=== PATIENT | female | born 1990 | race Caucasian/White ===

== ENCOUNTER 2017-11-18 03:26 | Observation (INO) | payer MEDICAID, SELFPAY ==
[2017-11-17 19:00] VITALS: BMI 29.0
[2017-11-17 19:47] LABS: Absolute Lymphocyte Count 3.61 X10^3/ul (0.83-4.51); Absolute Neutrophil Count 8.8 X10^3/uL (2.0-7.7); Basophil# 0.02 X10^3/uL; Basophil% 0.1 % (0-1); Eosinophil# 0.06 X10^3/uL; Eosinophils% 0.4 % (0-5); Hematocrit 31.3 % (37-47); Hemoglobin 10.6 g/dl (12.0-15.0); Lymphocyte # 3.61 X10^3/ul (4.0); Lymphocyte % 26.5 % (19-41); Mean Corp Hgb Conc 33.9 g/gl (32-36); Mean Corpuscular Volume 91.5 fL (81-99); Mean Platelet Vol. 11.5 fl (6.2-12.0); Monocyte# 1.08 X10^3/uL; Monocyte% 7.9 % (0-10); Neutrophil # 8.79 X10^3/uL (2.7-7.7); Neutrophil % 64.7 % (47-70); Platelet Count 286 K/mm3 (150-450); RBC Distribution Width CV 13.8 % (11.6-14.6); RBC Distribution Width SD 44.9 fl (35.1-43.9); Red Blood Count 3.42 M/mm3 (4.2-5.4); White Blood Count 13.6 K/mm3 (4.4-11.0)
[2017-11-17 19:49] LABS: POSITIVE COUNT NO; POSITIVE DIFFERENTIAL NO; POSITIVE MORPHOLOGY NO
[2017-11-17 19:52] LABS: Prothrombin Time (Protime)PT. 13.5 SECONDS (11.7-14.9)
[2017-11-17 19:53] LABS: Partial Thromboplast Time 27.4 Seconds (24.1-36.2)
[2017-11-17 20:02] LABS: AST(SGOT) 18 U/L (15-37); Alanine Aminotransfer ALT/SGPT 14 U/L (13-56); Creatinine, Serum 0.67 mg/dL (0.55-1.02); EST Glomerular Filtration Rate 114 mL/min (>60); Est Glom Filt Rate - Afr Amer 138 mL/min (>60); Uric Acid 4.3 mg/dL (2.6-6.0)
[2017-11-17 20:11] LABS: Protein, Urine (Random) 43.5 mg/dL (<11.9); Protein:Creat Ratio 144 mg/g CRE (0-200)
[2017-11-17] MEDS: Betamethasone/Betamethasone 30 MG/5 ML Vial 12 MG IM (20:17)
[2017-11-17] MEDS: Lactated Ringers 1,000 ML 125 ML IV (20:25)
[2017-11-17 20:41] LABS: Group B Strep DNA By PCR POSITIVE (Negative); Probe Check PASS
--- NOTE | 2017-11-17 21:17 | OB.TRI.NOTE ---
- Problem List (1) uterine contractions in third trimester, antepartum Status: Acute History of Present Illness Date of Service: 11/17/17 Was patient seen by the physician?: Yes Reason For Visit: ABDOMINAL PAIN Date of Service: 11/17/17 Final XAVIER: 12/20/17 Final XAVIER Source: US <20 weeks Gestational age: 35 Weeks and 2 Days History of Present Illness: Remberto is a 26 y/o @ 35.2 weeks reporting ctx starting at 3:30pm this afternoon that initially were 2-3 minutes apart and that patient rated a 4/10. Patient noted +FM and no vaginal discharge or bleeding. Patient at time ctx started was in the [facility], patient was evaluated for labor and r/o SROM. Negative work-up done in office. Patient then started to have more frequent ctx q 1-2 minutes apart that was more painful so patient made decision to come to hospital. Allergies metals Adverse Reaction (Uncoded 08/29/16 16:04) Rash - Pertinent Past Medical History Medical History: Past Medical History (Last Reviewed 11/08/17 @ 09:16 by Aleyda Ridley) Environmental allergies History of gallstones Surgical History: Past Surgical History (Last Reviewed 11/08/17 @ 09:16 by Aleyda Ridley) H/O shoulder surgery History of History of cholecystectomy Pertinent Past Medical History: See [facility] Record Physical Exam Vitals: See Nursing Note for Vital Signs - initial BP = 140s/90s, subsequent blood pressures 110s/70s-80s. Maternal HR 107-118. Patient Afebrile Initial FHT baseline was 170 to 180 with moderate variability, + accels, no decels noted General: Alert, Oriented x3, No apparent distress HEENT: Atraumatic, Normocephalic. 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 Negative for: Vulvar lesions Estimated gestational size: Appropriate for gestational size Presentation: Cephalic Cervix Dilation (cm): 1 - On admission by engineer technical staff Station: -2 Effacement (%): 50 NST - FHR Rate Baby A Baseline: 160 Variability:: Moderate Accelerations:: 15 x 15 Decelerations:: None NST Reactive:: Yes, Appropriate for gestational age FHR Category:: Category I Uterine Activity:: Ctx q 1-2 minutes, palpate mildly strong Impression/Plan A: 26 y/o @ 35.2 wks, Contractions, Previous Section, Category II ---> Category I FHT P: 1) Dr. Tapia consult re: this patient, Dr. Tapia to come and assess patient due to pre-term status 2) Start IV, given 1000mL LR fluid bolus 3) fFN done, GBS swab done, 1st dose Celestone given 4) Will admit 26 OBS status to evaluate for possible PTL Marlin BROWN
--- NOTE | 2017-11-17 21:27 | OB.TRI.HP_ITS ---
- Problem List (1) uterine contractions in third trimester, antepartum Status: Acute History of Present Illness Date of Service: 11/17/17 Was patient seen by the physician?: Yes Reason For Visit: ABDOMINAL PAIN Date of Service: 11/17/17 Final XAVIER: 12/20/17 Final XAVIER Source: US <20 weeks Gestational age: 35 Weeks and 2 Days History of Present Illness: Remberto is a 26 y/o @ 35.2 weeks reporting ctx starting at 3:30pm this afternoon that initially were 2-3 minutes apart and that patient rated a 4/10. Patient noted +FM and no vaginal discharge or bleeding. Patient at time ctx started was in the [facility], patient was evaluated for labor and r/o SROM. Negative work-up done in office. Patient then started to have more frequent ctx q 1-2 minutes apart that was more painful so patient made decision to come to hospital. Allergies metals Adverse Reaction (Uncoded 08/29/16 16:04) Rash - Pertinent Past Medical History Medical History: Past Medical History (Last Reviewed 11/08/17 @ 09:16 by Aleyda Ridley) Environmental allergies History of gallstones Surgical History: Past Surgical History (Last Reviewed 11/08/17 @ 09:16 by Aleyda Ridley) H/O shoulder surgery History of History of cholecystectomy Pertinent Past Medical History: See [facility] Record Physical Exam Vitals: See Nursing Note for Vital Signs - initial BP = 140s/90s, subsequent blood pressures 110s/70s-80s. Maternal HR 107-118. Patient Afebrile Initial FHT baseline was 170 to 180 with moderate variability, + accels, no decels noted General: Alert, Oriented x3, No apparent distress HEENT: Atraumatic, Normocephalic. 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 Negative for: Vulvar lesions Estimated gestational size: Appropriate for gestational size Presentation: Cephalic Cervix Dilation (cm): 1 - On admission by staffing and scheduling coordinator Station: -2 Effacement (%): 50 NST - FHR Rate Baby A Baseline: 160 Variability:: Moderate Accelerations:: 15 x 15 Decelerations:: None NST Reactive:: Yes, Appropriate for gestational age FHR Category:: Category I Uterine Activity:: Ctx q 1-2 minutes, palpate mildly strong Impression/Plan A: 26 y/o @ 35.2 wks, Contractions, Previous Section, Category II ---> Category I FHT P: 1) Dr. Tapia consult re: this patient, Dr. Tapia to come and assess patient due to pre-term status 2) Start IV, given 1000mL LR fluid bolus 3) fFN done, GBS swab done, 1st dose Celestone given 4) Will admit 26 OBS status to evaluate for possible PTL Marlin BROWN
--- NOTE | 2017-11-17 21:36 | PN_ITS ---
Progress Note Addendum: Patient reports that ctx strength and pain has decreased from a 7-8/ 10 to a 5 or 6/10. Patient continues to contract q 1-2 minutes. SVE done, cervical change noted. SVE = /-[address] Willie LOGAN updated on patient's status. Will continue to expectantly manage at this time. Marlin BROWN
--- NOTE | 2017-11-17 21:48 | NURSING ---
2148-will give pt admission packet once admitted.
[2017-11-17 21:58] LABS: Fibrinogen 420 mg/dl (203-444)
--- NOTE | 2017-11-18 02:44 | PCM.PN.OB ---
Patient Problems: Active and Suspected Problems (Last Reviewed 11/08/17 @ 09:16 by Aleyda Ridley) uterine contractions in third trimester, antepartum (Acute) Subjective: Patient sitting up in bed reporting that her contractions are continuing at this time. Still feeling very painful and uncomfortable to the patient. Patient rating contractions anywhere from 5-9/10. Patient breathing easily and usually able to talk through ctx. Patient reports sharp, stabbing pain in vagina during ctx and now +bloody mucus show. Objective: FHT baseline 120 with moderate to marked variability, + accels, no decels Ctx q 2 minutes, moderately strong to palpation SVE = 2/50/-2 by RN, unchanged from last exam - Physical Exam General: Alert, Oriented x3, Cooperative HEENT: Atraumatic, Normocephalic Neck: Supple Lungs: Normal air movement Cardiovascular: Regular rate, No murmurs Abdomen: Soft, Non Tender - Non-rigid, abdomen relaxes in between contractions Extremities: No edema, Capillary Refill Less than 3 Seconds Skin: No rashes, No breakdown Musculoskeletal: No Tenderness to Palpation of Joints or Extremities Neurological: Cranial nerves II-XII grossly intact, Deep Tendon Reflexes 2+/4 and Symmetrical Psych/Mental Status: Normal Affect, Appropriate Weight: 158 lb 11.725 oz Body Mass Index (BMI) 29.0 Intake and Output for Last 24 Hours 11/16/17 11/17/17 11/18/17 23:59 23:59 23:59 Intake Total 900 / 900 Output Total 100 / 100 Balance 800 / 800 Laboratory Tests Past 24 Hrs 11/17/17 11/17/17 11/17/17 19:25 19:25 19:25 WBC 13.6 H RBC 3.42 L Hgb 10.6 L Hct 31.3 L MCV 91.5 MCH 31.0 MCHC 33.9 RDW 13.8 RDW Differential 44.9 H Plt Count 286 MPV 11.5 Immature Gran % (Auto) 0.400 Neut % (Auto) 64.7 Lymph % (Auto) 26.5 [place] % (Auto) 7.9 Eos % (Auto) 0.4 Baso % (Auto) 0.1 Absolute Neuts (auto) 8.8 H Absolute Lymphs (auto) 3.61 Total Counted Not Reportable Kleihauer-Betke F Hgb PT 13.5 INR 1.0 APTT 27.4 Fibrinogen Creatinine Estim Creat Clear Calc Est GFR (MDRD) Af Amer Est GFR (MDRD) Non-Af Uric Acid AST ALT U Random Total Protein Urine Creatinine Protein/Creatinin Ratio Vag Amniotic Fld Detect Group B Strep DNA Specimen Comment Blood Type A POSITIVE Antibody Screen NEGATIVE 11/17/17 11/17/17 11/17/17 19:25 19:25 19:25 WBC RBC Hgb Hct MCV MCH MCHC RDW RDW Differential Plt Count MPV Immature Gran % (Auto) Neut % (Auto) Lymph % (Auto) [place] % (Auto) Eos % (Auto) Baso % (Auto) Absolute Neuts (auto) Absolute Lymphs (auto) Total Counted Kleihauer-Betke F Hgb Pending PT INR APTT Fibrinogen 420 Creatinine 0.67 Estim Creat Clear Calc 102.40 Est GFR (MDRD) Af Amer 138 Est GFR (MDRD) Non-Af 114 Uric Acid 4.3 AST 18 ALT 14 U Random Total Protein Urine Creatinine Protein/Creatinin Ratio Vag Amniotic Fld Detect Group B Strep DNA Specimen Comment Blood Type Antibody Screen 11/17/17 11/17/17 11/18/17 19:30 19:40 02:30 WBC RBC Hgb Hct MCV MCH MCHC RDW RDW Differential Plt Count MPV Immature Gran % (Auto) Neut % (Auto) Lymph % (Auto) [place] % (Auto) Eos % (Auto) Baso % (Auto) Absolute Neuts (auto) Absolute Lymphs (auto) Total Counted Kleihauer-Betke F Hgb PT INR APTT Fibrinogen Creatinine Estim Creat Clear Calc Est GFR (MDRD) Af Amer Est GFR (MDRD) Non-Af Uric Acid AST ALT U Random Total Protein 43.5 H Urine Creatinine 303.00 Protein/Creatinin Ratio 144 Vag Amniotic Fld Detect Pending Group B Strep DNA POSITIVE H Specimen Comment Not Reportable Blood Type Antibody Screen Medical Necessity - Tobacco Use Smoking Status: Never smoker Assessment/Plan All Active Problems (Last Reviewed 11/08/17 @ 09:16 by Aleyda Ridley) uterine contractions in third trimester, antepartum (Acute) Segmental and somatic dysfunction of sacral region (Acute) Segmental and somatic dysfunction of pelvic region (Acute) Segmental and somatic dysfunction of lumbar region (Acute) Kidney stone (Acute) 26 y/o @ 35.3 weeks, Contractions, Possible PTL, Category I-II FHT 1) Slight increased vaginal discharge noted during last exam - ROMPlus sent 2) Continue hydration with expectant management at this time 3) Continue to monitor closely for signs of abruption or Uterine Rupture 4) If cervical change noted (>4cm dilated with next exam), initiate GBS abx prophylaxis for GBS positive status 5) Reassess cervical change PRN Marlin Landis MANAGER QUALITY IMPROVEMENT-CNM
[2017-11-18 03:02] LABS: ROM Internal Control Test YES-OK TO RESULT pt. (Internal QC)
[2017-11-18 03:03] LABS: ROM Patient Test POSITIVE (Negative)
[2017-11-18] MEDS: Lactated Ringers 1,000 ML 50 ML IV (03:55)
[2017-11-18] MEDS: Mag Hydrox/Al Hydrox/Simeth 30 ML UDC PO (05:20)
--- NOTE | 2017-11-18 06:51 | PN.OBGYN_ITS ---
Patient Problems: Active and Suspected Problems (Last Reviewed 11/08/17 @ 09:16 by Aleyda Ridley) uterine contractions in third trimester, antepartum (Acute) Subjective: Patient ambulating halls at this time. Patient reports inability to sleep last night as contractions continued q 2 minutes throughout the night. Patient denies any large gushes of fluid, reports continued scant mucus brown discharge and feelings of wetness. Patient reports +FM. Objective: FHT baseline 125, moderate variability, + accels, No decels Ctx q 2-3 minutes, palpated mild to moderate strong SVE - deferred, nursing exam done within last hour showed no cervical change from last exam (/-2, outer os 3cm) - Physical Exam General: Alert, Oriented x3, Cooperative HEENT: Atraumatic, Normocephalic Neck: Supple Lungs: Normal air movement Cardiovascular: Regular rate, No murmurs Abdomen: Soft, Non Tender Extremities: No edema, Capillary Refill Less than 3 Seconds Skin: No rashes, No breakdown Musculoskeletal: No Tenderness to Palpation of Joints or Extremities Neurological: Cranial nerves II-XII grossly intact, Deep Tendon Reflexes 2+/4 and Symmetrical Psych/Mental Status: Normal Affect, Appropriate Weight: 158 lb 11.725 oz Body Mass Index (BMI) 29.0 Intake and Output for Last 24 Hours 11/16/17 11/17/17 11/18/17 23:59 23:59 23:59 Intake Total 900 / 900 1431 / 1431 Output Total 100 / 100 200 / 200 Balance 800 / 800 1231 / 1231 Laboratory Tests Past 24 Hrs 11/17/17 11/17/17 11/17/17 19:25 19:25 19:25 WBC 13.6 H RBC 3.42 L Hgb 10.6 L Hct 31.3 L MCV 91.5 MCH 31.0 MCHC 33.9 RDW 13.8 RDW Differential 44.9 H Plt Count 286 MPV 11.5 Immature Gran % (Auto) 0.400 Neut % (Auto) 64.7 Lymph % (Auto) 26.5 [place] % (Auto) 7.9 Eos % (Auto) 0.4 Baso % (Auto) 0.1 Absolute Neuts (auto) 8.8 H Absolute Lymphs (auto) 3.61 Total Counted Not Reportable Kleihauer-Betke F Hgb PT 13.5 INR 1.0 APTT 27.4 Fibrinogen Creatinine Estim Creat Clear Calc Est GFR (MDRD) Af Amer Est GFR (MDRD) Non-Af Uric Acid AST ALT U Random Total Protein Urine Creatinine Protein/Creatinin Ratio Vag Amniotic Fld Detect Group B Strep DNA Specimen Comment Blood Type A POSITIVE Antibody Screen NEGATIVE 11/17/17 11/17/17 11/17/17 19:25 19:25 19:25 WBC RBC Hgb Hct MCV MCH MCHC RDW RDW Differential Plt Count MPV Immature Gran % (Auto) Neut % (Auto) Lymph % (Auto) [place] % (Auto) Eos % (Auto) Baso % (Auto) Absolute Neuts (auto) Absolute Lymphs (auto) Total Counted Alishaauer-Betke F Hgb Pending PT INR APTT Fibrinogen 420 Creatinine 0.67 Estim Creat Clear Calc 102.40 Est GFR (MDRD) Af Amer 138 Est GFR (MDRD) Non-Af 114 Uric Acid 4.3 AST 18 ALT 14 U Random Total Protein Urine Creatinine Protein/Creatinin Ratio Vag Amniotic Fld Detect Group B Strep DNA Specimen Comment Blood Type Antibody Screen 11/17/17 11/17/17 11/18/17 19:30 19:40 02:30 WBC RBC Hgb Hct MCV MCH MCHC RDW RDW Differential Plt Count MPV Immature Gran % (Auto) Neut % (Auto) Lymph % (Auto) [place] % (Auto) Eos % (Auto) Baso % (Auto) Absolute Neuts (auto) Absolute Lymphs (auto) Total Counted Alexy Liz Hgb PT INR APTT Fibrinogen Creatinine Estim Creat Clear Calc Est GFR (MDRD) Af Amer Est GFR (MDRD) Non-Af Uric Acid AST ALT U Random Total Protein 43.5 H Urine Creatinine 303.00 Protein/Creatinin Ratio 144 Vag Amniotic Fld Detect POSITIVE H Group B Strep DNA POSITIVE H Specimen Comment Not Reportable Blood Type Antibody Screen Medical Necessity - Tobacco Use Smoking Status: Never smoker Assessment/Plan All Active Problems (Last Reviewed 11/08/17 @ 09:16 by Aleyda Ridley) uterine contractions in third trimester, antepartum (Acute) Segmental and somatic dysfunction of sacral region (Acute) Segmental and somatic dysfunction of pelvic region (Acute) Segmental and somatic dysfunction of lumbar region (Acute) Kidney stone (Acute) A: 26 y/o @ 35.2 weeks, Pre-term Labor, Possible PROM, Category I-II FHT P: 1) No further scant watery fluid noted - update from nursing staff to consider false positive of ROMPlus from scant brown discharge (old blood) 2) Report given to oncoming MD physician Dr. Recio 3) First dose of PCN abx given to patient in case of PPROM 4) Will continue to monitor patient expectantly at this time Marlin BROWN
[2017-11-18 10:32] LABS: Kleihauer-Betke Negative
--- NOTE | 2017-11-18 17:15 | PCM.PN.OB ---
Subjective: Patient reports stable ctxs. Denies VB. Stable LOF since Wednesday. Reports good FM. - Physical Exam General: Alert, Oriented x3 Abdomen: Soft, Non Tender, Non-Distended Extremities: No Calf Tenderness Comment: cervix - 2/50/-2 Weight: 158 lb 11.725 oz Body Mass Index (BMI) 29.0 Intake and Output for Last 24 Hours 11/16/17 11/17/17 11/18/17 23:59 23:59 23:59 Intake Total 900 / 900 1858 / 1858 Output Total 100 / 100 400 / 400 Balance 800 / 800 1458 / 1458 Laboratory Tests Past 24 Hrs 11/17/17 11/17/17 11/17/17 19:25 19:25 19:25 WBC 13.6 H RBC 3.42 L Hgb 10.6 L Hct 31.3 L MCV 91.5 MCH 31.0 MCHC 33.9 RDW 13.8 RDW Differential 44.9 H Plt Count 286 MPV 11.5 Immature Gran % (Auto) 0.400 Neut % (Auto) 64.7 Lymph % (Auto) 26.5 [place] % (Auto) 7.9 Eos % (Auto) 0.4 Baso % (Auto) 0.1 Absolute Neuts (auto) 8.8 H Absolute Lymphs (auto) 3.61 Total Counted Not Reportable Kleihauer-Betke F Hgb PT 13.5 INR 1.0 APTT 27.4 Fibrinogen Creatinine Estim Creat Clear Calc Est GFR (MDRD) Af Amer Est GFR (MDRD) Non-Af Uric Acid AST ALT U Random Total Protein Urine Creatinine Protein/Creatinin Ratio Vag Amniotic Fld Detect Group B Strep DNA Specimen Comment Blood Type A POSITIVE Antibody Screen NEGATIVE 11/17/17 11/17/17 11/17/17 19:25 19:25 19:25 WBC RBC Hgb Hct MCV MCH MCHC RDW RDW Differential Plt Count MPV Immature Gran % (Auto) Neut % (Auto) Lymph % (Auto) [place] % (Auto) Eos % (Auto) Baso % (Auto) Absolute Neuts (auto) Absolute Lymphs (auto) Total Counted Kleihauer-Betke F Hgb Negative PT INR APTT Fibrinogen 420 Creatinine 0.67 Estim Creat Clear Calc 102.40 Est GFR (MDRD) Af Amer 138 Est GFR (MDRD) Non-Af 114 Uric Acid 4.3 AST 18 ALT 14 U Random Total Protein Urine Creatinine Protein/Creatinin Ratio Vag Amniotic Fld Detect Group B Strep DNA Specimen Comment Blood Type Antibody Screen 11/17/17 11/17/17 11/18/17 19:30 19:40 02:30 WBC RBC Hgb Hct MCV MCH MCHC RDW RDW Differential Plt Count MPV Immature Gran % (Auto) Neut % (Auto) Lymph % (Auto) [place] % (Auto) Eos % (Auto) Baso % (Auto) Absolute Neuts (auto) Absolute Lymphs (auto) Total Counted Kleihauer-Betke F Hgb PT INR APTT Fibrinogen Creatinine Estim Creat Clear Calc Est GFR (MDRD) Af Amer Est GFR (MDRD) Non-Af Uric Acid AST ALT U Random Total Protein 43.5 H Urine Creatinine 303.00 Protein/Creatinin Ratio 144 Vag Amniotic Fld Detect POSITIVE H Group B Strep DNA POSITIVE H Specimen Comment Not Reportable Blood Type Antibody Screen Medical Necessity - Tobacco Use Smoking Status: Never smoker Assessment/Plan All Active Problems (Last Reviewed 11/08/17 @ 09:16 by Aleyda Ridley) uterine contractions in third trimester, antepartum (Acute) Segmental and somatic dysfunction of sacral region (Acute) Segmental and somatic dysfunction of pelvic region (Acute) Segmental and somatic dysfunction of lumbar region (Acute) Kidney stone (Acute) 26yo female @ 35&3 with threatened PTL Stable cervical exam SSE is negative for rupture - pool/fern negative. TAUS shows active fetus with AFV of 14. ROM swab was a false positive as all other tests indicate no PPROM. Patient discharged home earlier today (after evaluation complete) F/u tonight for BMZ#2 PTL & FM precautions reviewed
== END 2017-11-18 09:50 | disposition home or self-care (01) ==
LOC: WP 16:01
PROVIDERS: Advanced Practice Midwife; Admitting Provider Obstetrics & Gynecology; Family Provider Student in an Organized Health Care Education/Training Program; PCP Student in an Organized Health Care Education/Training Program; Visit Provider Obstetrics & Gynecology
DX: O62.8 Other abnormalities of forces of labor (principal); Z3A.35 35 weeks gestation of pregnancy; M99.04 Segmental and somatic dysfunction of sacral region; M99.05 Segmental and somatic dysfunction of pelvic region; M99.03 Segmental and somatic dysfunction of lumbar region; O34.219 Maternal care for unspecified type scar from previous cesarean delivery; N85.8 Other specified noninflammatory disorders of uterus
CPT/HCPCS: 96365; 96366; 59025; 59050; 76815; 82565; 82570; 84112; 84156; 84450; 84460; 84550; 85025; 85384; 85460; 85610; 85730; 86850; 86900; 87653; 96372; 99218; J7120; G0378; J0702

== ENCOUNTER 2017-11-18 19:40 | Outpatient (CLI) | payer MEDICAID, SELFPAY ==
[2017-11-18 19:57] VITALS: BMI 29.7
[2017-11-18] MEDS: Betamethasone/Betamethasone 30 MG/5 ML Vial 12 MG IM (20:15)
[2017-11-18 20:20] VITALS: RESP 18
--- NOTE | 2017-12-02 14:23 | OB.TRI.NOTE ---
History of Present Illness Reason For Visit: R/O LABOR Final XAVIER Source: US <20 weeks Allergies metals Adverse Reaction (Uncoded 11/29/17 20:44) Rash - Pertinent Past Medical History Medical History: Past Medical History (Last Reviewed 11/08/17 @ 09:16 by Aleyda Ridley) Environmental allergies History of gallstones Surgical History: Past Surgical History (Last Reviewed 11/08/17 @ 09:16 by Aleyda Ridley) H/O shoulder surgery History of History of cholecystectomy Physical Exam Vitals: Vital Signs Resp 18 11/18/17 20:20 Impression/Plan BMZ for threatened PTL
== END 2017-11-18 20:20 | disposition home or self-care (01) ==
LOC: WPOUT 19:51 → WP 19:52
PROVIDERS: Family Provider Student in an Organized Health Care Education/Training Program; PCP Student in an Organized Health Care Education/Training Program; Visit Provider Obstetrics & Gynecology
DX: O60.02 Preterm labor without delivery, second trimester (principal); Z3A.20 20 weeks gestation of pregnancy
CPT/HCPCS: 96372; 99218; G0378; J0702

== ENCOUNTER 2017-11-29 19:32 | Outpatient (CLI) | payer MEDICAID, SELFPAY ==
[2017-11-29 20:44] VITALS: BMI 28.1
[2017-11-29 20:51] LABS: ROM Internal Control Test YES-OK TO RESULT pt. (Internal QC); ROM Patient Test Negative (Negative)
[2017-11-29] MEDS: Ondansetron 4 MG/2 ML Vial IV (21:19)
[2017-11-29] MEDS: Lactated Ringers 1,000 ML 150 ML IV (21:20)
--- NOTE | 2017-12-01 08:00 | OB.TRI.HP_ITS ---
- Problem List (1) rule out labor Status: Acute (2) Dehydration during Status: Acute History of Present Illness Date of Service: 11/29/17 Was patient seen by the physician?: No Reason For Visit: R/O LABOR Date of Service: 11/29/17 Final XAVIER: 12/20/17 Final XAVIER Source: US <20 weeks Gestational age: 37 Weeks and 2 Days History of Present Illness: Patient presented today triage reporting ctx that started since 1500 in afternoon. Patient also feeling dizzy and reported emesis x 7 times today. Patient unable to tolerate foods or liquids. Patient reports ctx q 2-3 minutes apart. Allergies metals Adverse Reaction (Uncoded 11/29/17 20:44) Rash - Pertinent Past Medical History Medical History: Past Medical History (Last Reviewed 11/08/17 @ 09:16 by Aleyda Ridley) Environmental allergies History of gallstones Surgical History: Past Surgical History (Last Reviewed 11/08/17 @ 09:16 by Aleyda Ridley) H/O shoulder surgery History of History of cholecystectomy Physical Exam Vitals: See nursing note for vital signs and assessment - patient is normotensive and afebrile Estimated gestational size: Appropriate for gestational size Presentation: Cephalic Cervix Dilation (cm): 2.5 - Per FREEDOM Higginbotham assessment Station: -3 Effacement (%): 50 NST - FHR Rate Baby A Baseline: Initially 165, then after hydration 140 Variability:: Moderate Accelerations:: 15 x 15 Decelerations:: None, Variable NST Reactive:: Yes, Appropriate for gestational age FHR Category:: Category I, Category II - By time of discharge, small variables had resolved and tracing was a Category I tracing Uterine Activity:: Initially q 2 minutes and moderately palpable, then after hydration mor irregular q 2-5 minutes apart and mildly palpable Impression/Plan 26 y/o @ 37 weeks, R/O Labor, Previous Section, False Labor d/t Dehydration P: 1) Discharge to home in stable condition - no cervical change noted on exam 2) Encourage PO hydration 5-6 bottles of water daily, BRAT diet and eating bland foods 3) Labor precautions reviewed 4) RTC as scheduled for n.v. at [facility] Marlin BROWN
== END 2017-11-29 23:25 | disposition home or self-care (01) ==
LOC: WPOUT 20:05 → WP 20:08
PROVIDERS: Family Provider Student in an Organized Health Care Education/Training Program; PCP Student in an Organized Health Care Education/Training Program; Visit Provider Obstetrics & Gynecology
DX: O47.1 False labor at or after 37 completed weeks of gestation (principal); Z3A.37 37 weeks gestation of pregnancy; O34.219 Maternal care for unspecified type scar from previous cesarean delivery; E86.0 Dehydration; Z90.49 Acquired absence of other specified parts of digestive tract
CPT/HCPCS: 96361 ×3; 96374; 59025; 59050; 84112; 99218; J7120; A4216; G0378; J2405

== ENCOUNTER 2017-12-02 16:10 | Outpatient (CLI) | payer MEDICAID, SELFPAY ==
[2017-12-02 18:00] VITALS: BMI 35.3
--- NOTE | 2017-12-03 01:40 | OB.TRI.NOTE ---
History of Present Illness Was patient seen by the physician?: No Reason For Visit: R/O LABOR Date of Service: 12/02/17 Final XAVIER: 12/20/17 Final XAVIER Source: US <20 weeks Gestational age: 37 Weeks and 4 Days Allergies metals Adverse Reaction (Uncoded 11/29/17 20:44) Rash - Pertinent Past Medical History Medical History: Past Medical History (Last Reviewed 11/08/17 @ 09:16 by Aleyda Ridley) Environmental allergies History of gallstones Surgical History: Past Surgical History (Last Reviewed 11/08/17 @ 09:16 by Aleyda Ridley) H/O shoulder surgery History of History of cholecystectomy NST - FHR Rate Baby A Baseline: 130 Variability:: Moderate Accelerations:: 15 x 15 Decelerations:: None NST Reactive:: Yes Uterine Activity:: Q2-4 min Impression/Plan Reactive NST for false labor
== END 2017-12-02 18:30 | disposition home or self-care (01) ==
LOC: WPOUT 16:29 → WP 16:30
PROVIDERS: Family Provider Student in an Organized Health Care Education/Training Program; PCP Student in an Organized Health Care Education/Training Program; Visit Provider Obstetrics & Gynecology
DX: O47.1 False labor at or after 37 completed weeks of gestation (principal); Z3A.37 37 weeks gestation of pregnancy; Z90.49 Acquired absence of other specified parts of digestive tract
CPT/HCPCS: 59025; 59050; 99218; G0378

== ENCOUNTER 2017-12-09 01:30 | Inpatient (IN) | payer MEDICAID, SELFPAY ==
[2017-12-09 01:25] LABS: ROM Internal Control Test YES-OK TO RESULT pt. (Internal QC)
[2017-12-09 01:26] LABS: ROM Patient Test POSITIVE (Negative)
[2017-12-09] MEDS: Lactated Ringers 1,000 ML 50 ML IV (01:50)
[2017-12-09 01:53] VITALS: BMI 29.5
[2017-12-09 02:07] LABS: Hematocrit 34.3 % (37-47); Hemoglobin 11.4 g/dl (12.0-15.0); Mean Corp Hgb Conc 33.2 g/gl (32-36); Mean Corpuscular Hgb 29.6 pg (27.0-32.0); Mean Corpuscular Volume 89.1 fL (81-99); Mean Platelet Vol. 11.6 fl (6.2-12.0); Platelet Count 283 K/mm3 (150-450); RBC Distribution Width CV 14.2 % (11.6-14.6); RBC Distribution Width SD 46.4 fl (35.1-43.9); Red Blood Count 3.85 M/mm3 (4.2-5.4); White Blood Count 11.8 K/mm3 (4.4-11.0)
[2017-12-09 02:10] LABS: Scan Indicated on CBC? Y/N NO
--- NOTE | 2017-12-09 02:15 | PCM.HP.OB ---
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 pt denies VB. Medical History: Medical History (Last Reviewed 11/08/17 @ 09:16 by Aleyda Ridley) Environmental allergies Z91.09 History of gallstones Z87.19 Z34.90 Surgical History: Surgical History (Last Reviewed 11/08/17 @ 09:16 by Aleyda Ridley) H/O shoulder surgery Z98.890 History of Z98.891 History of cholecystectomy Z90.49 Allergies metals Adverse Reaction (Uncoded 11/29/17 20:44) Rash Home Medications: Home Medications famotidine 20 mg tablet 20 mg PO QDAY 11/02/17 Calcium Carbonate [Tums] 200 mg PO DAILY 11/17/17 Ferrous Sulfate [Iron] 325 mg PO BID 11/17/17 [id number]/Omega3/Dha/Fish Oil [ Gummies] 2 each PO DAILY 11/17/17 Smoking Status: Never smoker Alcohol: None Number of Fetus(es): 1 Heart Tracin mod deven + accels, no decels TOCO Analysis: q2-3min History Past Pregnancies: Past Pregnancies Delivery Date Name GA/Weeks Outcome Route Weight Gender Labor Length Anesthesia Delivery Location Provider FOB Expected Delivery Method: Spontaneous Vaginal, Physical Exam General: Alert, Oriented x3 Abdomen: Soft, Gravid Neurological: Cranial nerves II-XII grossly intact 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: Normal 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 Estimated gestational size: Appropriate for gestational size Presentation: Cephalic Cervix Dilation (cm): 4.5 Station: -1 Effacement (%): 80 Assessment/Plan All Active Problems (Last Reviewed 11/08/17 @ 09:16 by Aleyda Ridley) uterine contractions in third trimester, antepartum (Acute) rule out labor (Acute) Dehydration during (Acute) Segmental and somatic dysfunction of sacral region (Acute) Segmental and somatic dysfunction of pelvic region (Acute) Segmental and somatic dysfunction of lumbar region (Acute) Kidney stone (Acute) This is a 27 year-old, G 3, P 2, at 38 weeks gestational age c/o contractions and LOF- found to be in early labor with ROM at home 1) admit to L&D 2) monitor fhr/toco 3) anticipate successful 4) GBS + start pcn for prophylaxis 5) PNL reviewed- blood type A+
--- NOTE | 2017-12-09 02:20 | HP.PCM_ITS ---
History Date of Admission: 12/09/17 Final XAVIER: 12/20/17 Final XAVIER Source: US <20 weeks Gestational age: 38 Weeks and 3 Days History of this : This is a 27 year-old, G 3, P2, at 38 weeks gestational age c/o leaking fluid since 12/08/17 in open cut examiner with increasing contractions since that time. pt denies VB. Medical History: Medical History (Last Reviewed 11/08/17 @ 09:16 by Aleyda Ridley) Environmental allergies Z91.09 History of gallstones Z87.19 Z34.90 Surgical History: Surgical History (Last Reviewed 11/08/17 @ 09:16 by Aleyda Ridley) H/O shoulder surgery Z98.890 History of Z98.891 History of cholecystectomy Z90.49 Allergies metals Adverse Reaction (Uncoded 11/29/17 20:44) Rash Home Medications: Home Medications famotidine 20 mg tablet 20 mg PO QDAY 11/02/17 Calcium Carbonate [Tums] 200 mg PO DAILY 11/17/17 Ferrous Sulfate [Iron] 325 mg PO BID 11/17/17 Pio021/FA/Omega3/Dha/Fish Oil [ Gummies] 2 each PO DAILY 11/17/17 Smoking Status: Never smoker Alcohol: None Number of Fetus(es): 1 Heart Tracin mod deven + accels, no decels TOCO Analysis: q2-3min History Past Pregnancies: Past Pregnancies Delivery Date Name GA/Weeks Outcome Route Weight Gender Labor Length Anesthesia Delivery Location Provider FOB Expected Delivery Method: Spontaneous Vaginal, Physical Exam General: Alert, Oriented x3 Abdomen: Soft, Gravid Neurological: Cranial nerves II-XII grossly intact 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: Normal 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 Estimated gestational size: Appropriate for gestational size Presentation: Cephalic Cervix Dilation (cm): 4.5 Station: -1 Effacement (%): 80 Assessment/Plan All Active Problems (Last Reviewed 11/08/17 @ 09:16 by Aleyda Ridley) uterine contractions in third trimester, antepartum (Acute) rule out labor (Acute) Dehydration during (Acute) Segmental and somatic dysfunction of sacral region (Acute) Segmental and somatic dysfunction of pelvic region (Acute) Segmental and somatic dysfunction of lumbar region (Acute) Kidney stone (Acute) This is a 27 year-old, G 3, P 2, at 38 weeks gestational age c/o contractions and LOF- found to be in early labor with ROM at home 1) admit to L&D 2) monitor fhr/toco 3) anticipate successful 4) GBS + start pcn for prophylaxis 5) PNL reviewed- blood type A+
[2017-12-09] MEDS: Oxytocin 30 units/NS 500 ml 30 UNITS/500 ML IV.SOLN 334 UNITS IV (03:59)
--- NOTE | 2017-12-09 04:11 | PCM.OB.VAG ---
Vaginal Delivery Maternal Presentation: Active Labor Amniotic Membrane Rupture Type: Spontaneous at home Amniotic Fluid Description: Clear Final XAVIER: 12/20/17 Gestational age: 38 Weeks and 3 Days Date of Procedure: 12/09/17 Pre-Operative Diagnosis: term gestation, TOLAC, spontaneous labor Post-Operative Diagnosis: same, live male Surgery/ Procedure Performed: Spontaneous Vaginal Delivery Type of Anesthesia: - - Nitrous Description of Procedure: of live male born without complication- good maternal effort, delivered with only a couple of pushes, gentle downward traction placed anterior shoulder delivered without difficulty followed by rest of infant body. delayed cord clamping performed. Presentation: Vertex Placental Delivery Description: Spontaneous Placenta Disposition: [facility] Cord Vessel Description: 3 Vessels Nuchal Cord Compression: Without compression Cord Entanglement: None Estimated Blood Loss: 250 Infant A gender: Male (1 minute): 8 (5 minute): 9 Episiotomy Description: None Laceration: Vaginal Extension/lac - lidocaine injected and then 3-0 rapide placed in figure of eight fashion for hemostasis, 1st degree Medications given after delivery: IV Pitocin Complications: None
[2017-12-09] MEDS: Oxytocin 30 units/NS 500 ml 30 UNITS/500 ML IV.SOLN 167 UNITS IV (04:30)
[2017-12-09] MEDS: 0.9% Saline Lock 10 ML Syringe IV (05:30)
[2017-12-09] MEDS: Ibuprofen 600 MG Tablet PO ×2 (09:19→16:10)
[2017-12-09 09:20] VITALS: BP 117/74; PULSE 75; RESP 20; TEMP 36.6
[2017-12-09 12:50] VITALS: BP 114/61; PULSE 91; TEMP 36.7
[2017-12-09 16:10] VITALS: BP 120/78; PULSE 69; TEMP 36.6
--- NOTE | 2017-12-09 16:17 | DCINST_ITS ---
Discharge Diet: No Restrictions Discharge Activity: Return to Normal Activity, May not drive while taking narcotic pain medications., May Shower May resume sexual activity in: 4-6 weeks Additional Activity Instructions:: Nothing in the vagina for 4-6 weeks. You may return to work/school in 6 weeks. Call your doctor if your incision/area has: Continuous Slow Oozing, Sudden Increased Bleeding, Increased Pain/ Swelling, Increased Redness, Foul Smelling Discharge Additional Instructions: If you experience any of the following, contact your healthcare provider. * Bleeding that soaks a pad every hour for 2 hours * Fever 100.4 or higher * Unrelieved incision or abdominal pain * Swelling, redness, discharge or bleeding from your incision or episiotomy site * Your incision begins to separate * Problems urinating (including inability to urinate or burning while urinating) . * Visual changes * Severe headache * Flu-like symptoms * Pain or redness in one of both of your breasts * Pain, warmth, tenderness or swelling in your legs, especially the calf area * Frequent nausea and vomiting * Symptoms of depression or anxiety If you experience any of the following, call 911 or go to the nearest Emergency Room. * Chest pain * Problems breathing * Seizure activity * Partial or complete paralysis of a body part, slurred speech, weakness or drooping of the face, or a sudden inability to walk or hold your balance Allergies/Adverse Reactions: Allergies metals Adverse Reaction (Uncoded 11/29/17 20:44) Rash Medications to take at Discharge Calcium Carbonate [Tums] 200 mg PO DAILY 11/17/17 Pks052/FA/Omega3/Dha/Fish Oil [ Gummies] 2 each PO DAILY 11/17/17 Ibuprofen [Motrin] 800 mg PO Q8H PRN PRN #30 tab 12/09/17 The following prescriptions were given: Ibuprofen [Motrin] 800 mg PO Q8H PRN PRN #30 tab PRN Reason: Pain When: Call to make an appointment with your doctor in 6 weeks. If you had elevated Blood Pressure or 4th degree laceration you will need to be seen in 2 weeks. Primary Care Physician: Remberto Lopes DO [Primary Care Provider] - Test Results: Test results from this visit will be discussed in further detail at your follow- up appointment, if applicable.
[2017-12-09] MEDS: Acetaminophen 500 MG Tablet 1000 MG PO (18:19)
[2017-12-09 20:29] VITALS: BP 113/76; PULSE 65; RESP 18; TEMP 36.4
[2017-12-10 00:25] VITALS: BP 137/81; PULSE 55; RESP 16; TEMP 35.9
[2017-12-10 03:58] VITALS: BP 123/75; PULSE 61; RESP 17; TEMP 36.1
[2017-12-10] MEDS: Ibuprofen 600 MG Tablet PO ×3 (04:22→20:28)
--- NOTE | 2017-12-10 06:24 | PCM.PN.OB ---
Subjective: Pain well controlled, average lochia. - Physical Exam General: Alert, Cooperative, No apparent distress Vital Signs Temp Pulse Resp BP 96.9 F L 61 17 123/75 H 12/10/17 03:58 12/10/17 03:58 12/10/17 03:58 12/10/17 03:58 Oxygen Delivery Method Room Air Weight: 73.391 kg Body Mass Index (BMI) 29.5 Intake and Output for Last 24 Hours 12/08/17 12/09/17 12/10/17 23:59 23:59 23:59 Intake Total 597 / 597 Output Total 500 / 500 Balance 97 / 97 Medical Necessity - Tobacco Use Smoking Status: Never smoker Assessment/Plan All Active Problems (Last Reviewed 11/08/17 @ 09:16 by Aleyda Ridley) uterine contractions in third trimester, antepartum (Acute) rule out labor (Acute) Dehydration during (Acute) Segmental and somatic dysfunction of sacral region (Acute) Segmental and somatic dysfunction of pelvic region (Acute) Segmental and somatic dysfunction of lumbar region (Acute) Kidney stone (Acute) day #1 status post spontaneous vaginal delivery Patient is doing well. Routine care. May discharge home later today if patient desires. Infant is breast-feeding and doing well.
[2017-12-10 08:00] VITALS: BP 109/63; PULSE 69; RESP 16; TEMP 36.1
[2017-12-10 14:05] VITALS: BP 110/72; PULSE 75; RESP 16; TEMP 36.4
[2017-12-10 20:00] VITALS: BP 113/69; PULSE 78; RESP 16; TEMP 36.4
[2017-12-11 01:43] VITALS: PULSE 70; RESP 16
[2017-12-11 06:30] VITALS: BP 128/88; PULSE 66; RESP 16; TEMP 36.3
--- NOTE | 2017-12-11 06:41 | PCM.PN.OB ---
Subjective: pain well controlled, average lochia - Physical Exam General: Alert, Cooperative, No apparent distress Vital Signs Temp Pulse Resp BP 97.5 F L 70 16 113/69 12/10/17 20:00 12/11/17 01:43 12/11/17 01:43 12/10/17 20:00 Oxygen Delivery Method Room Air Weight: 73.391 kg Body Mass Index (BMI) 29.5 Intake and Output for Last 24 Hours 12/09/17 12/10/17 12/11/17 23:59 23:59 23:59 Intake Total 597 / 597 Output Total 500 / 500 Balance / Medical Necessity - Tobacco Use Smoking Status: Never smoker Assessment/Plan All Active Problems (Last Reviewed 11/08/17 @ 09:16 by Aleyda Ridley) uterine contractions in third trimester, antepartum (Acute) rule out labor (Acute) Dehydration during (Acute) Segmental and somatic dysfunction of sacral region (Acute) Segmental and somatic dysfunction of pelvic region (Acute) Segmental and somatic dysfunction of lumbar region (Acute) Kidney stone (Acute) PPD#2 doing well infant ready for d/c
[2017-12-11 08:55] VITALS: BP 111/74; PULSE 62; RESP 16; TEMP 36.6
== END 2017-12-11 13:00 | disposition home or self-care (01) | DRG 372 ==
LOC: WPOUT 01:34
PROVIDERS: Admitting Provider Obstetrics & Gynecology; Family Provider Student in an Organized Health Care Education/Training Program; PCP Student in an Organized Health Care Education/Training Program; Visit Provider Obstetrics & Gynecology
DX: O71.4 Obstetric high vaginal laceration alone (principal); O98.82 Other maternal infectious and parasitic diseases complicating childbirth; M99.04 Segmental and somatic dysfunction of sacral region; B95.1 Streptococcus, group B, as the cause of diseases classified elsewhere; M99.05 Segmental and somatic dysfunction of pelvic region; M99.03 Segmental and somatic dysfunction of lumbar region; Z3A.38 38 weeks gestation of pregnancy; Z37.0 Single live birth; Z87.19 Personal history of other diseases of the digestive system; Z91.09 Other allergy status, other than to drugs and biological substances; Z98.891 History of uterine scar from previous surgery
CPT/HCPCS: 59025; 59050; 84112; 85027; 86850; 86900; 99218; J7120; A4216; G0378

== ENCOUNTER 2018-01-03 11:35 | Emergency (ER) | payer MEDICAID, SELFPAY ==
[2018-01-03 11:37] VITALS: BP 155/102; PULSE 67; RESP 24; TEMP 36.8; O2SAT 99; BMI 25.6
--- NOTE | 2018-01-03 12:08 | ED.VISSUMM ---
- ER Visit Summary Date of Service: 01/03/18 Chief Complaint: Acute right flank pain History of Present Illness: The patient is a 27 F who presents with acute right flank pain radiating intermittently anteriorly that started at 10 AM. She does complain nausea without vomiting. She denies fever, chills night sweats. She has history of renal stones and pyelonephritis. She delivered 3 weeks ago. She states she cannot be since she has not had intercourse after delivery. She denies dysuria, frequency, urgency or hematuria. She denies any cardiac respiratory symptoms. There is no history of trauma. Physical Examination: Vital signs are noted. Blood pressure is elevated 155/102. She is in obvious discomfort. She cannot find a position of comfort. Head is atraumatic normocephalic. Pupils are equal round reactive. Extraocular muscles are intact. TMs are pearly white with landmarks noted. Nares patent with no drainage. Posterior pharynx without erythema or exudate. Uvula is midline. There is no dysphonia or dysphasia. Trachea is midline. There is no stridor with auscultation of the neck. Heart is regular without murmur, gallop or rub. S1 and S2 are normal. Lungs are clear to auscultation with good movement of air bilaterally. Abdomen is soft nontender with normal bowel sounds. Equivocal right CVA tenderness. No evidence of trauma or skin lesions to suggest shingles. Test Results: UA reveals microscopic hematuria 25-[address] of the abdomen pelvis without contrast reveals a 2 mm renal calculi and a 4 mm stone noted in the bladder. Presume this is her most recent passed stone Emergency Department Course and Treatment: IV was established. She was medicated with 30 mg of Toradol and 4 mg Zofran. Urinalysis was obtained and CT of the abdomen and pelvis without contrast was obtained to evaluate for obstructing ureteral stone. Treatment Plan: NSAIDs and follow-up with her physician Dr. Lopes Disposition: Discharged home Impression: Passed ureteral calculus This note was generated with viseto dictation software. It may contain incorrect words, spelling, and punctuation that were not noted in review of the chart prior to signing ED Disposition - Plan for ED Patient: Disposition: Home or Assisted Living Chief Complaint: Flank Pain Instructions: ED Stone Renal Passed Referrals: Remberto Lopes, [Primary Care Provider] - As Needed Additional Instructions: Take either 4 Advil every 8 hours for the next 2-3 days or 2 Aleve every 12 hours for the next 2-3 days
[2018-01-03] MEDS: Ondansetron 4 MG/2 ML Vial IV (12:15)
[2018-01-03] MEDS: 0.9% Normal Saline 1,000 ML 250 ML IV (12:15)
[2018-01-03] MEDS: Ketorolac 30 MG/ML Syringe IV (12:15)
[2018-01-03 13:03] LABS: Mucous, Urine 0 SEEN /hpf (<or=2+)
[2018-01-03 13:04] LABS: Color, Urine Yellow (Yellow); Glucose, Dipstick Normal (Normal); Ketone-Dipstick Negative (Negative); Leukocyte Esterase-Dipstick 25 /ul (Negative); Nitrite-Dipstick Negative (Negative); Occult Blood-Urine 250 /ul (Negative); Protein-Dipstick 30 mg/dl (Negative); Specific Gravity, Urine 1.005 (1.002-1.030); Urine Bilirubin Dipstick Negative (Negative); Urine Clarity Sl. Cloudy (Clear); Urine Urobilinogen Normal (Normal)
[2018-01-03 13:11] LABS: Bacteria RARE /hpf (None Seen); Red Blood Cells-Urine 25-50 SEEN /hpf (0-5); Squamous Epithelial Cells - UA 0-5 SEEN /hpf (5-10); White Blood Cells 0-5 SEEN /hpf (0-5)
[2018-01-03 14:04] VITALS: BP 128/78; PULSE 64; RESP 16; O2SAT 100
== END 2018-01-03 14:06 | disposition home or self-care (01) ==
PROVIDERS: Emergency Provider Emergency Medicine; Family Provider Student in an Organized Health Care Education/Training Program; PCP Student in an Organized Health Care Education/Training Program
DX: O90.89 Other complications of the puerperium, not elsewhere classified (principal); N20.1 Calculus of ureter; R31.29 Other microscopic hematuria; Z87.442 Personal history of urinary calculi; Z72.0 Tobacco use
CPT/HCPCS: 74176; 81001; 96361; 96374; 96375; 99283; J7030; A4216; J2405

== ENCOUNTER 2018-01-27 11:29 | Day surgery (SDC) | payer MEDICAID, SELFPAY ==
[2018-01-27 11:48] VITALS: BP 112/77; PULSE 54; RESP 16; TEMP 36.8; O2SAT 100; BMI 25.4
[2018-01-27 12:38] LABS: Hematocrit 34.9 % (37-47); Hemoglobin 11.8 g/dl (12.0-15.0); Mean Corp Hgb Conc 33.8 g/gl (32-36); Mean Corpuscular Hgb 29.3 pg (27.0-32.0); Mean Corpuscular Volume 86.6 fL (81-99); Mean Platelet Vol. 10.1 fl (6.2-12.0); Platelet Count 258 K/mm3 (150-450); RBC Distribution Width CV 13.7 % (11.6-14.6); RBC Distribution Width SD 42.6 fl (35.1-43.9); Red Blood Count 4.03 M/mm3 (4.2-5.4); White Blood Count 6.1 K/mm3 (4.4-11.0)
[2018-01-27 12:38] LABS: Internal QC Validated? YES +Cl - CLEAR BKGD; Pregnancy, Urine Negative Negative
[2018-01-27 12:52] LABS: Scan Indicated on CBC? Y/N NO
--- NOTE | 2018-01-27 13:20 | FALS_PTH ---
PATIENT: REMBERTO DELAROSA [place] [facility] [place][id number] AGE/SX: 27/F ROOM: RE01/27/[address]: Dr. Liyah Gomez DO : 1990 BED: DIS: 01/27/2018 SPEC #: [id number] RECD: 01/28/18 08:16 STATUS: LAURA NABIL #: [id number] EDUARDA: 01/27/18 13:[address]: Liyah Gomez DEPT: SURGICAL PATHOLOGY RECD BY: Feliciano Wayne ENTERED: 01/28/18 10:44 SP TYPE: FALL TUBES OTHR DR: Dr. Remberto Lopes DO Tissues: Fallopian tube Procedures: Surgery Specimen Level II HEADER OPERATION: Laparoscopic salpingectomy PRE-OP DIAGNOSIS: Sterilization request TISSUE SUBMITTED: Bilateral fallopian tubes MICROSCOPIC DIAGNOSIS Bilateral fallopian tubes, salpingectomy: Bilateral fallopian tubes including fimbrial ends, no pathologic diagnosis. WINTER:ryan 9/24/18 MICROSCOPIC DESCRIPTION Slides are reviewed. GROSS DESCRIPTION Received is one container labeled with the patient's name and designated bilateral fallopian tubes. The specimen consists of bilateral fallopian tubes including fimbrial ends measuring 6 cm in length and 0.6 cm in diameter and 4.5 cm in length and 0.6 cm in diameter. Sections do not reveal any mass lesion. The fallopian tubes are not identified as right or left. Sections reveal unremarkable cut surfaces. Slinger Sequins sections are submitted in two cassettes with each cassette containing one fallopian tube. / WINTER:ryan 01/28/18 TC:4 CPT: 14077 x2
[2018-01-27] MEDS: Bupivacaine 0.5% PF 10 ML VIAL (14:31)
[2018-01-27 15:19] VITALS: BP 112/77; BP 125/84; PULSE 70; RESP 16; TEMP 36.4; O2SAT 95
--- NOTE | 2018-01-27 15:25 | OP.PCM_ITS ---
Problem List (1) Encounter for sterilization Status: Acute Operative Report Date of Procedure: 01/27/18 Preoperative diagnosis: 1. multiparous patient 2. desires permanent sterilization Postoperative diagnosis: as above Procedure performed: laparoscopic bilateral salpingectomy Anesthesia: General endotracheal Estimated blood loss: less than 50 cc Specimens: left and right fallopian tubes Complications: none Surgeon: Liyah Gomez DO Indications: patient is a 27-year-old who desires permanent sterilization. Alternatives for control were discussed with the patient. She declines all other forms of control including LARCS. She states she has been abstinent since her last delivery. She is 100% sure she does not want any future children. She understands the risk of regret and that this is a permanent procedure. Risks, benefits, and alternatives were discussed and she was fully consented. Findings: normal liver edge. Normal uterus, bilateral tubes, and bilateral bilateral ovaries. Normal pelvis. Minimal adhesions of bladder to uterus Procedure: After informed consent was obtained, the patient was taken to the operating room where general anesthesia was administered. She was then prepped and draped in the dorsal lithotomy position. A weighted speculum was then placed in the vagina. The anterior lip of the cervix was grasped. A uterine manipulator was placed. Attention was then turned to the abdominal portion of the case. We all removed dirty gloves from the previous portion of the case. Half-percent Marcaine was injected infraumbilically. An infraumbilical incision was made to accommodate a 5 mm port. A 5 mm port was placed under direct visualization. It was confirmed that we were intra-abdominal. The CO2 gas was started. Once the abdomen was insufflated, anesthesia noted the patient was bradycardic. The abdomen was then exsufflated. Once anesthesia deemed to the patient was stable to proceed with the surgery, the CO2 gas was started again to insufflate the abdomen. Patient was placed in Trendelenburg position. A left lateral and a right lateral 5 mm port were placed under direct visualization after injecting half-percent marcaine. The liver edge was noted to be normal. The pelvis also appeared normal. Normal uterus, bilateral tubes, and bilateral ovaries. The left fallopian tube was elevated out of the pelvis, and the LigaSure device was used to serially cauterize and cut along the mesosalpinx in order to remove the left fallopian tube. Then the right fallopian tube was elevated out of the pelvis, and the LigaSure device was used to serially cauterize and cut along the mesosalpinx in order to remove the right fallopian tube. The left and right fallopian tubes were removed from the abdomen and sent to pathology for review. Hemostasis was noted. The lateral ports were removed. The abdomen was exsufflated and the infraumbilical port site was removed. 3-0 Monocryl was used to close the port sites, and Dermabond was placed over the port sites. The uterine manipulator was removed from the cervix. The patient was taken to the recovery room in stable condition. The patient tolerated the procedure well. Sponge, lap, needle counts were correct ? 2.
--- NOTE | 2018-01-27 15:27 | DCINST_ITS ---
- Discharge Diagnoses Current Active Problems: Current Active and Chronic Problems (Last Reviewed 11/08/17 @ 09:16 by Aleyda Ridley) Encounter for sterilization (Acute) You will use the following diet at home:: No restrictions Discharge Activity: May not drive while taking narcotic pain medications., May Shower May resume sexual activity in: 2 weeks Weight Bearing Status: Weight bearing as tolerated Lifting Restrictions: No lifting anything greater than 20 lbs Call your doctor if your incision/area has: Sudden Increased Bleeding, Increased Pain/ Swelling, Increased Redness, Foul Smelling Discharge, Swelling at the incision site Call your doctor if you observe: Fever of 101 or Higher, Shortness of breath, Dizziness, Chest pain, Calf discomfort, Uncontrolled pain Suture Line Care: Avoid Pulling/Pushing Cleanse incision/area with: Soap & Water Allergies/Adverse Reactions: Allergies metals Adverse Reaction (Uncoded 01/27/18 11:47) Rash Medications to take at Discharge Nbt229/FA/Omega3/Dha/Fish Oil [ Gummies] 2 each PO DAILY 01/24/18 Oxycodone HCl/Acetaminophen [Percocet 5/325] 1 tablet PO Q6H PRN PRN 7 Days #10 tablet 01/27/18 The following prescriptions were given: Oxycodone HCl/Acetaminophen [Percocet 5/325] 1 tablet PO Q6H PRN PRN 7 Days #10 tablet PRN Reason: Pain Primary Care Physician: Remberto Lopes DO [Primary Care Provider] - Test Results: Test results from this visit will be discussed in further detail at your follow- up appointment, if applicable. Please Follow Up With: Liyah Gomez DO When: 1-2 weeks
[2018-01-27 15:30] VITALS: BP 112/77; BP 116/70; PULSE 53; RESP 16; O2SAT 97
[2018-01-27 15:45] VITALS: BP 110/64; BP 112/77; PULSE 60; RESP 16; O2SAT 94
[2018-01-27 16:00] VITALS: BP 111/82; BP 112/69; BP 112/77; PULSE 47; PULSE 58; RESP 16; TEMP 36.4; O2SAT 96; O2SAT 97
[2018-01-27 17:38] VITALS: BP 112/77; BP 118/72; PULSE 57; RESP 16; TEMP 36.7; O2SAT 100
== END 2018-01-27 17:40 | disposition home or self-care (01) ==
LOC: SDC 11:30 → AC 11:31
PROVIDERS: Family Provider Student in an Organized Health Care Education/Training Program; PCP Student in an Organized Health Care Education/Training Program; Visit Provider Obstetrics & Gynecology
PROC: (CPT 58661; principal; 2018-01-27 13:05)
DX: Z30.2 Encounter for sterilization (principal); E78.00 Pure hypercholesterolemia, unspecified
CPT/HCPCS: 58661; 81025; 85027; 86850; 86900; 88302; J7120; J2405

== ENCOUNTER 2019-06-16 15:44 | Emergency (ER) | payer BC, SELFPAY ==
[2019-06-16 15:44] VITALS: BP 162/74; PULSE 106; RESP 16; TEMP 36.7; O2SAT 98; BMI 34.0
--- NOTE | 2019-06-16 16:05 | ED.VIS.GEN ---
History of Present Illness Chief Complaint: Laceration Informant: Patient Onset: Today Context: Sudden Onset Current Severity: Mild Maximum Severity: Mild Narrative: Patient presents to the emergency department laceration. Patient is right-hand dominant. She was trying to open a box with a hunting knife. She states her hand slipped and she incised to the lateral aspect of her left fifth digit at the proximal phalanx. She does describe some tingling in the finger. She denies any other injury. Last tetanus was 4 years ago. She is not on anticoagulants. Prior similar symptoms: No Recent Illness/Hospitalization: No Past Medical History - Allergies and Home Meds Allergies/Adverse Reactions: Allergies metals Adverse Reaction (Uncoded 06/16/19 15:46) Rash Primary Care Physician: Remberto Lopes DO [Primary Care Provider] - Prior records reviewed: Yes Past Medical History: None Surgical History: no surgical history Smoking Status: Never smoker Review of Systems General: Denies: Chills, Fever, Sweats Eyes: Denies: Visual changes - bilaterally, Diplopia ENT: Denies: Rhinorrhea, Sore throat Cardiovascular: Denies: Chest pain, Palpitations Respiratory: Denies: Dyspnea, Cough, Dyspnea on exertion Gastrointestinal: Denies: Abdominal pain, Nausea, Vomiting, Diarrhea, Melena, Hematochezia Genitourinary: Denies: Dysuria, Hematuria, Frequency Musculoskeletal: Denies: Back pain, Extremity Pain Skin: Denies: Rash, Wounds Neurological: Denies: Headache, Weakness, Numbness Physical Exam Vital Signs/Narrative: Vital Signs Temp Pulse Resp BP Pulse Ox 06/16/19 15:44 98.1 F 106 H 16 162/74 H 98 Inital Vital Signs reviewed: Yes General: Well nourished, Well developed, No Acute Distress Head: Normocephalic, Atraumatic Eyes: Perrl, EOMI ENT: Moist mucous membranes, No rhinorrhea Neck: Supple, Nontender Cardiovascular: Regular rate, Regular rhythm, No murmurs Respiratory: No distress, CTA bilaterally, Chest nontender Abdomen: Soft, Nontender, Nondistended, Normal bowel sounds Back: Nontender, Normal Inspection Extremities: No edema, Tenderness - 1.5 cm obliquely oriented laceration on the medial posterior aspect of the left fifth proximal phalanges. Cap refill less than 2 seconds. Flexion extension preserved. Skin: Normal color, No rash Neurological: Alert, Oriented x3, Cranial nerves II-XII grossly intact, Normal Strength, Normal Sensation Psychological: Normal affect, Normal Mood Diagnostic/Tx/Re-eval - Medical Decision Making The patient presents a laceration to her finger. Under sterile conditions, the wound was anesthetized. 2 cc of lidocaine without epinephrine were used. It was irrigated with 250 cc of normal saline. The wound was explored. There is no evidence of tendinous laceration. The wound was closed using 3 simple 5-0 interrupted suture. The patient tolerated this without issue. She was placed in a bacitracin dressing and counseled on wound care. She will follow-up in 7 to 10 days for suture removal. Impression 1. 1.5 cm left fifth finger laceration with repair ED Disposition - Plan for ED Patient: Instructions: LACERATION, Hand Referrals: Remberto Lopes DO [Primary Care Provider] - 10 Day for suture removal
[2019-06-16 16:25] VITALS: RESP 16
[2019-06-16 16:48] VITALS: RESP 16
--- NOTE | 2019-06-16 16:49 | ED.RN ---
REVIEWED D/C INSTRUCTIONS, FOLLOW UP CARE, AND S/S THAT WOULD WARRANT A RETURN TO THE ED WITH PT. PT VERBALIZED AN UNDERSTANDING AND DENIES FURTHER QUESTIONS FOR THIS RN. PT SKIN P/W/D, RESP EVEN AND UNLABORED, PT A&O X 3, NO DISTRESS NOTED. PT AMBULATED OUT OF ED, GAIT STEADY.
== END 2019-06-16 16:50 | disposition home or self-care (01) ==
LOC: ED 16:30
PROVIDERS: Emergency Provider Emergency Medicine; PCP Student in an Organized Health Care Education/Training Program
DX: S61.217A Laceration without foreign body of left little finger without damage to nail, initial encounter (principal); W26.0XXA Contact with knife, initial encounter; Y93.9 Activity, unspecified; Y92.89 Other specified places as the place of occurrence of the external cause; Y99.9 Unspecified external cause status
CPT/HCPCS: 12001; 99283

== ENCOUNTER 2024-06-28 12:20 | Emergency (ER) | payer OTHER, BC, MEDICAID, SELFPAY ==
[2024-06-28 12:21] VITALS: BP 122/80; PULSE 87; RESP 15; TEMP 36.4; O2SAT 100; BMI 24.4
--- NOTE | 2024-06-28 12:28 | ED.RN ---
PT HAD INJURY 3 WEEKS AGO AND WAS TOLD SHE SPRAINED ACHILLES TENDON AND PULLED A NERVE. HAS BEEN DOING PT FOR 2 WEEKS. HAS HAD SOME NUMBNESS AND TINGLING AT TIMES, REDNESS AND HOT TO TOUCH AT TIMES, AND SOMETIMES BECOMES COLD WHILE SHE FEELS NORMAL. [facility] ADVISED HER TO COME OVER.
--- NOTE | 2024-06-28 12:33 | VDLE_ITS ---
Reason For Study Reason For Study: Right leg swelling RIGHT LEFT GSV is normal. CFV is compressible, spontaneous, phasic, competent, CFV is compressible, spontaneous, phasic, competent and demonstrates normal augmentation. and demonstrates normal augmentation. FV is compressible, spontaneous, phasic, competent and demonstrates normal augmentation. POP V is compressible, spontaneous, phasic, competent and demonstrates normal augmentation. T/P Trunk is compressible. PTV is compressible. RT PerV is compressible. Procedure This is a venous duplex using B-mode, color flow and spectral Doppler. Exam performed portable in ED. A preliminary report was called and/or faxed to [facility]. VL/Venous Duplex US, Unilateral Interpretation Summary Deep veins of the right lower extremity are patent and compressible segmentally . There is no evidence of right lower extremity deep vein thrombosis. The right great saphenous vein appears patent a nd compressible segmentally. Ordering Physician: Estee Yee Referring Physician: Remberto Lopes Performed By: Linda Ivy RVT
--- NOTE | 2024-06-28 12:35 | EDS_ITS ---
HPI History of Present Illness Chief Complaint: Lower Extremity Injury Informant: patient Narrative Narrative: Patient is a 33 year old female with no significant past medical history and recent right ankle sprain/injury at work presenting for concern of DVT. Patient states that she had a work-related right ankle injury about 3 weeks ago. She was told that she likely sprained her Achilles tendon and maybe has some nerve inflammation or injury because she gets episodes of numbness and cold to her foot. She states that she has gone on to develop episodes where her entire lower right leg is hot to the touch and will be blood red from the knee down. It is especially bad if she is in the shower or at the end of the day when she has been standing a lot. She states [facility] told her she should come to the ER to rule out a DVT. She denies any history of DVTs. Denies any estrogen therapy. Denies any associated chest pain or shortness of breath. No fevers or chills reported. No other complaints or concerns at this time. She notes her ankle is slowly improving and is currently in physical therapy. [facility] Medical History rule out labor History of gallstones Environmental allergies Home Medications ?Medication ?Instructions ?Recorded ?Last Taken ?Type bupropion HCl 150 mg tablet,12 hr 150 mg PO DAILY 11/26 Unknown History sustained-release Allergy/AdvReac Type Severity Reaction Status Date / Time Environmental Allergies: AdvReac Rash Verified 06/28/24 12:30 Uncoded (metals) Family History Other Arthritis Asthma High cholesterol Hypertension Surgical History History of History of cholecystectomy H/O shoulder surgery Social History Smoking Status: Never smoker alcohol intake: never substance use type: does not use what type of physical activity do you participate in: none ROS ROS ED Constitutional Constitutional ED: Denies chills or fever(s) Cardiovascular Cardiovascular: Denies chest pain Respiratory/Chest Respiratory/Chest: Denies dyspnea or dyspnea on exertion Musculoskeletal Musculoskeletal: Reports other Details: intermittent right lower leg swelling and redness. Aching pain Integumentary Reports rash Neurologic Neurologic: Reports paresthesias; Denies weakness Hematologic/Lymphatic Hematologic/Lymphatic: Denies easy bleeding or easy bruising EXAM Physical Exam Const Vital Signs: 06/28/24 12:21 Temperature 97.6 F L Temperature Source Temporal Pulse Rate 87 Respiratory Rate 15 Blood Pressure 122/80 H Blood Pressure Mean 94 Pulse Ox 100 Oxygen Delivery Method Room Air Positive well nourished and well developed General Appearance ED: well developed and NAD HEENT Reports moist mucous membranes Neck supple Chest Wall inspection of chest normal and palpation of chest normal Resp normal respiratory effort and clear to auscultation bilaterally Cardio regular rate and regular rhythm Cardio Narrative: 2+ DP pulse - right Extremity normal to inspection and full ROM Extremity Narrative: No joint effusion of the knee or ankle appreciated. No obvious edema of the right lower extremity. No palpable cords. Mild tenderness with palpation of the calf. Normal Somers test. No pinpoint bony tenderness. Neuro oriented x3 Sensorium / Orientation: alert Motor Exam: Negative for general weakness Psych mental status grossly normal Skin Lesions: no lesions Rashes: no rashes MDM MDM MDM Narrative Medical decision making narrative: Patient is evaluated for intermittent episodes of right lower extremity swelling and skin discoloration. There is concern for DVT. Patient has a relatively normal exam at this time. She has good distal pulses. Do not appreciate any overlying skin changes. No palpable cords. Venous duplex is obtained however and this is negative for DVT. Suspect these changes are likely post traumatic and associated with inflammation and overuse. Encouraged to continue NSAID therapy, compression stockings and elevation is much as possible. Will continue to follow-up outpatient with [employer] and physical therapy. At this time she does not have any findings concerning for cellulitis or an acute infection. Discharged home in stable condition. Radiography Diagnostic Testing: Clinical Impression(s) from Imaging Studies Venous Doppler Study 06/28/24 12:33 Interpretation Summary Deep veins of the right lower extremity are patent and compressible segmentally. There is no evidence of right lower extremity deep vein thrombosis. The right great saphenous vein appears patent and compressible segmentally. Ordering Physician: Estee Yee Referring Physician: Remberto Lopes Performed By: Linda Ivy RVT Discharge Plan Triage Chief Complaint: Lower Extremity Injury ED Provider: Estee Yee Dx/Rx/DC Orders Clinical Impression: Swelling of right lower extremity Instructions: ED Peripheral Edema, Unilateral Prescriptions: No Action bupropion HCl 150 MG tablet sustained-release 12 hr 150 mg PO DAILY Primary Care Provider: Remberto Lopes Referrals: Remberto Lopes, [Primary Care Provider] - Activity Restrictions/Additional Instructions: You do not have a blood clot in your leg. I would recommend compression stockings and elevating leg is much as possible. I suspect the swelling and skin changes is likely associated with your recent injury and localized inflammation. Print Language: Icelandic Disposition Disposition: Home, Self Care Discharge Date/Time: 06/28/24 13:21
== END 2024-06-28 13:21 | disposition home or self-care (01) ==
PROVIDERS: Emergency Provider Emergency Medicine; PCP Student in an Organized Health Care Education/Training Program; Visit Provider Emergency Medicine
DX: M79.89 Other specified soft tissue disorders (principal); R20.2 Paresthesia of skin; Z90.49 Acquired absence of other specified parts of digestive tract
CPT/HCPCS: 93971; 99282

== ENCOUNTER 2024-07-24 07:48 | Emergency (ER) | payer BC, SELFPAY ==
[2024-07-24 07:48] VITALS: BP 129/86; PULSE 83; RESP 15; TEMP 36.7; O2SAT 100; BMI 24.7
[2024-07-24] MEDS: Lidocaine/Epi/Tetracaine 50 ML 1 APPLIC TOPICAL (08:25)
--- NOTE | 2024-07-24 08:26 | EDS_ITS ---
HPI History of Present Illness Chief Complaint: Other, Pain/Inj PFSH PFSH Medical History rule out labor History of gallstones Environmental allergies Home Medications ?Medication ?Instructions ?Recorded ?Last Taken ?Type bupropion HCl 150 mg tablet,12 hr 150 mg PO DAILY 11/26 Unknown History sustained-release Allergy/AdvReac Type Severity Reaction Status Date / Time Environmental Allergies: AdvReac Rash Verified 07/24/24 07:50 Uncoded (metals) Family History Other Arthritis Asthma High cholesterol Hypertension Surgical History History of History of cholecystectomy H/O shoulder surgery Social History Smoking Status: Never smoker alcohol intake: never substance use type: does not use what type of physical activity do you participate in: none EXAM Physical Exam Const Vital Signs: 07/24/24 07:48 Temperature 98.1 F Temperature Source Temporal Pulse Rate 83 Respiratory Rate 15 Blood Pressure 129/86 H Blood Pressure Mean 100 Pulse Ox 100 Oxygen Delivery Method Room Air [facility] Narr[place] Medical decision making narrative: HISTORY OF PRESENT ILLNESS: 33-year-old female presents with left nipple injury. She states that she has a nipple raining and she was attempting to get into the shower when her nipple caught hot the shower curtain and it was subsequently pulled out. She notes severe pain in the left nipple. 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 Showed normal-appearing areola tissue, no signs of infection, no fluctuance or induration, no peau orange, no palpable fluctuance induration crepitus or bullae noted Skin: Dried blood noted over left nipple, no obvious bleeding, no obvious gaping wound, no foreign bodies MEDICAL DECISION MAKING: Chief Complaint: Left nipple pain [facility] Narrative: Patient was initially hemodynamically stable, afebrile nontoxic-appearing The patient suffered lacerations to the left nipple On exam there was no evidence of foreign bodies. Wound care applied (irrigation and/or local cleansing solution). Laceration repair was then performed please see procedure note. The patient was given signs and symptoms warnings for infection, such as increasing pain, redness, swelling, associated heat, pus or fever. Patient was given instructions for timely follow-up for removal. Patient agreed with the plan of care Procedure: Laceration repair. The procedure was performed by myself. Indication: Wound repair Risks and benefits: risks, benefits and alternatives were discussed Consent: Consent was obtained. Wound Details: Linear laceration noted horizontally to the left nipple, approximately 0.5 cm in length, approximately 1 mm in depth, no foreign bodies noted. No obvious deeper area with structures involved Anesthesia: Topical let (verbal consent obtained from patient). Wound prep: Patient was prepped and draped in the usual sterile fashion. Tetanus: Up-to-date Irrigation Solution: Saline Wound Preparation: Clean with chlorhexidine The wound was explored to its base in a bloodless field. Procedure Description: Placed 2 5-0 Chromic Gut sutures with close approximation. Patient tolerated the procedure well with no immediate complications. The patient and/or family, caregivers express understanding. The patient and/or family, caregivers agrees with the plan. Shared decision making: I will have a discussion with the patient and or visitors regarding risk/benef its of further testing or admission. They will be made aware of of the risk/benefits inherent in this decision they will be given the opportunity to voice understanding. Total critical care time today provided was at least 0 minutes. This excludes separately billable procedures. Critical care time (if documented) is secondary to the patient having high probability of clinically significant/life threatening deterioration in the patient's condition which required my urgent intervention. Impression: 1. Nipple laceration Dispo: discharge This note was generated with [employer] dictation software. It may contain incorrect words, spelling, and punctuation that were not noted in review of the chart prior to signing. Discharge Plan Triage Chief Complaint: Other, Pain/Inj ED Provider: Clemente Freeman Dx/Rx/DC Orders Clinical Impression: Laceration Instructions: ED Laceration, All Closures Prescriptions: No Action bupropion HCl 150 MG tablet sustained-release 12 hr 150 mg PO DAILY Primary Care Provider: Remberto Lopes Referrals: Remberto Lopes, DO [Primary Care Provider] - Activity Restrictions/Additional Instructions: Thank you for trusting us with your care today! Please take Tylenol (2 pills, 650 mg), ibuprofen (2 pills, 400 mg) every 6 hours as needed for pain and fever control. Please take antibiotics as prescribed until course complete Please return to the emergency department if your symptoms change or worsen. Please follow with your primary care physician for further outpatient evaluation and management. Print Language: Slovenian Disposition Disposition: Home, Self Care
== END 2024-07-24 09:11 | disposition home or self-care (01) ==
PROVIDERS: Emergency Provider Emergency Medicine; PCP Student in an Organized Health Care Education/Training Program; Visit Provider Emergency Medicine
DX: S21.012A Laceration without foreign body of left breast, initial encounter (principal); Z90.49 Acquired absence of other specified parts of digestive tract; X58.XXXA Exposure to other specified factors, initial encounter; Y92.89 Other specified places as the place of occurrence of the external cause
CPT/HCPCS: 12001; 99282